=== PATIENT | female | born 2000 | race Caucasian/White ===

== ENCOUNTER 2023-12-15 20:15 | Emergency (ER) | payer OTHER ==
[~2023-12-15] VITALS: Ht 167.6 cm; Wt 101.5 kg
[2023-12-15 21:01] LABS: BASO % 0.4 % (0.0-1.0); EOS # 0.5 10^3/uL (0.0-0.5); EOS % 4.9 % (0.0-3.0); HEMOGLOBIN 12.4 g/dl (12.0-15.5); LYMPH # 2.7 10^3/uL (1.5-5.0); LYMPH % 29.3 % (24.0-44.0); MEAN CORPUSCULAR HGB CONC 33.5 g/dl (32.0-36.5); MEAN CORPUSCULAR VOLUME 83.5 fl (80.0-96.0); MONO # 0.7 10^3/uL (0.0-0.8); MONO % 7.4 % (2.0-8.0); NEUTROPHILS # 5.4 10^3/uL (1.5-8.5); NEUTROPHILS % 57.7 % (36.0-66.0); PLATELET COUNT, AUTOMATED 432 10^3/uL (150-450); RED BLOOD COUNT 4.43 10^6/uL (4.00-5.40); WHITE BLOOD COUNT 9.3 10^3/uL (4.0-10.0)
[2023-12-15 21:30] LABS: URINE PREG TEST NEGATIVE (NEGATIVE)
[2023-12-15 21:44] LABS: HCG, SERUM QUANTITATIVE 7.4 MIU/ML (<4.2)
[2023-12-15 21:45] LABS: BLOOD UREA NITROGEN 9 MG/DL (9-23); CALCIUM LEVEL 8.9 MG/DL (8.5-10.1); CARBON DIOXIDE LEVEL 25 MMOL/L (20-31); CHLORIDE LEVEL 110 MMOL/L (98-107); CREATININE FOR GFR 0.64 MG/DL (0.55-1.30); GLOMERULAR FILTRATION RATE > 60.0 (>60); GLUCOSE, FASTING 91 MG/DL (60-100); POTASSIUM SERUM 4.6 MMOL/L (3.5-5.1); SODIUM LEVEL 142 MMOL/L (136-145)
[2023-12-15 22:18] VITALS: BP 139/79; TEMP 97.4; O2SAT 97
== END 2023-12-15 23:27 | disposition home or self-care (01) ==
LOC: M ED 20:15
DX: N93.9 Abnormal uterine and vaginal bleeding, unspecified (principal); F17.200 Nicotine dependence, unspecified, uncomplicated

== ENCOUNTER 2024-11-17 15:07 | Outpatient (CLI) | payer OTHER ==
[~2024-11-17] VITALS: Ht 167.6 cm; Wt 123.0 kg
[2024-11-17 15:23] VITALS: BP 163/91
[2024-11-17] MEDS ORDERED: ASPI81CH33 PO (15:35)
[2024-11-17] MEDS ORDERED: TUMS500C PO (15:35)
[2024-11-17] MEDS ORDERED: PRENTAB9 PO (15:35)
[2024-11-17] MEDS ORDERED: LEVO100T5 PO (15:35)
[2024-11-17] MEDS ORDERED: HOME MED LIST COMPLETE! XX SCH (15:35)
[2024-11-17 15:40] VITALS: BP 150/87
[2024-11-17 15:54] VITALS: BP 135/72
[2024-11-17 16:08] VITALS: BP 134/67
[2024-11-17 16:24] VITALS: BP 135/72
[2024-11-17 16:25] LABS: HEMATOCRIT 32.6 % (36.0-47.0); HEMOGLOBIN 11.1 g/dl (12.0-15.5); MEAN CORPUSCULAR HEMOGLOBIN 29.6 pg (27.0-33.0); MEAN CORPUSCULAR VOLUME 86.9 fl (80.0-96.0); PLATELET COUNT, AUTOMATED 311 10^3/uL (150-450); RED BLOOD COUNT 3.75 10^6/uL (4.00-5.40); WHITE BLOOD COUNT 9.9 10^3/uL (4.0-10.0)
[2024-11-17 16:32] LABS: TOTAL PROTEIN,RANDOM URINE 10.2 MG/DL (0.0-14.0)
[2024-11-17 16:37] LABS: CREATININE,RANDOM URINE 75.8 MG/DL
[2024-11-17 16:39] VITALS: BP 124/67
[2024-11-17 16:51] LABS: URIC ACID 3.5 MG/DL (3.1-7.8)
[2024-11-17 16:52] LABS: LDH LACTATE DEHYDROGENASE 116 U/L (120-246)
[2024-11-17 16:54] LABS: ALT/SGPT 9 U/L (7.0-40); AST/SGOT < 8 U/L (<34); BILIRUBIN,TOTAL 0.2 MG/DL (0.3-1.2); CREATININE FOR GFR 0.46 MG/DL (0.55-1.30); GLOMERULAR FILTRATION RATE > 60.0 (>60)
== END 2024-11-17 17:30 | disposition home or self-care (01) ==
LOC: M LDO 15:07
PROVIDERS: ATTEND Advanced Practice Midwife
DX: O26.893 Other specified pregnancy related conditions, third trimester (principal); R03.0 Elevated blood-pressure reading, without diagnosis of hypertension; Z3A.30 30 weeks gestation of pregnancy
CPT/HCPCS: 36415; 59025; 82247; 82570; 83615; 84156; 84450; 84460; 84550; 85027; G0463